=== PATIENT | male | born 1960 | race Caucasian/White ===

== ENCOUNTER 2019-05-03 10:12 | Inpatient (IN) | payer OTHER ==
[~2019-05-03] VITALS: Ht 167.6 cm; Wt 86.0 kg
--- NOTE | 2019-05-03 10:22 | NUR ---
pt to room, changed into gown, upright on gurney awake & comfortable, responds approp to staff, NAD, comfort measures provided, at BS, call light within reach.
[2019-05-03] MEDS ORDERED: ASPI-496 PO (10:29)
[2019-05-03] MEDS ORDERED: HYDR25TA6 PO (10:29)
[2019-05-03] MEDS ORDERED: AMLO10TA8 PO (10:29)
[2019-05-03] MEDS ORDERED: LISI5TAB7 PO (10:29)
[2019-05-03] MEDS ORDERED: hydrALAzine 20 MG/ML, 1ML ONE (10:42)
--- NOTE | 2019-05-03 10:56 | NUR ---
pt remains upright on gurney awake & comfortable, responds approp to staff, NAD, comfort measures provided, at BS, call light within reach.
[2019-05-03] MEDS ORDERED: hydrALAzine 20 MG/ML, 1ML IV ONE (11:00)
[2019-05-03 11:13] LABS: BASOPHILS # (AUTO) 0.04 x10^3/uL (0-0.1); BASOPHILS % (AUTO) 1 % (0-1); EOSINOPHILS # (AUTO) 0.35 x10^3/uL (0-0.4); EOSINOPHILS % (AUTO) 4 % (1-7); LYMPHOCYTES # (AUTO) 2.36 x10^3/uL (1-3.4); LYMPHOCYTES % (AUTO) 28 % (22-44); MD NO; MEAN CORPUSCULAR HEMOGLOBIN 29.3 pg (27.5-34.5); MEAN CORPUSCULAR HGB CONC 33.8 g/dL (33.2-36.2); MEAN CORPUSCULAR VOLUME 86.8 fL (81-97); MEAN PLATELET VOLUME 8.1 fL (7.4-10.4); MONOCYTES # (AUTO) 0.59 x10^3/uL (0.2-0.8); MONOCYTES % (AUTO) 7 % (2-9); NEUTROPHILS # (AUTO) 5.14 x10^3/uL (1.8-6.8); NEUTROPHILS % (AUTO) 61 % (42-75); PLATELET COUNT 249 x10^3/uL (130-400); RED BLOOD COUNT 5.72 x10^6/uL (4.38-5.82); RED CELL DISTRIBUTION WIDTH 13.8 % (9.4-14.8)
[2019-05-03 11:24] LABS: ALBUMIN 4.1 g/dL (3.4-5.0)
[2019-05-03 11:31] LABS: ALANINE AMINOTRANSFERASE 41 U/L (12-78); ALKALINE PHOSPHATASE 106 U/L (45-117); BILIRUBIN,TOTAL 0.7 mg/dL (0.2-1.0); CREATININE 1.29 mg/dL (0.7-1.3); TOTAL PROTEIN 7.5 g/dL (6.4-8.2); TROPONIN I < 0.015 ng/mL (0.000-0.045)
[2019-05-03 11:40] LABS: ANION GAP 8 mmol/L (5-15); CHLORIDE 106 mmol/L (98-107)
--- NOTE | 2019-05-03 11:46 | NUR ---
pt upright on gurney awake & comfortable, responds approp to staff, NAD, comfort measures provided, at BS, call light within reach.
[2019-05-03] MEDS ORDERED: POTASSIUM CHLORIDE 20 MEQ TAB.ER.PRT PO ONE (12:00)
[2019-05-03] MEDS ORDERED: POTASSIUM CHLORIDE 20 MEQ TAB.ER.PRT ONE (12:10)
--- NOTE | 2019-05-03 12:47 | NUR ---
Pt to be admitted to [facility], room 516. Report called to Norman.
[2019-05-03] MEDS ORDERED: LABETALOL 5MG/ML, 20ML IVPush PRN (13:00)
[2019-05-03] MEDS ORDERED: morphine SULFATE 10 MG/ML, 1ML IVPush PRN (13:00)
[2019-05-03] MEDS ORDERED: ONDANSETRON ODT 4 MG PO PRN (13:00)
[2019-05-03] MEDS ORDERED: ONDANSETRON 2MG/ML, 2ML IVPush PRN (13:00)
[2019-05-03 13:16] VITALS: BP 196/93
[2019-05-03 13:47] VITALS: BP 206/112
[2019-05-03 13:47] LABS: FREE T4 (FREE THYROXINE) 1.05 ng/dL (0.76-1.46)
[2019-05-03] MEDS ORDERED: LABETALOL 5 MG/ML SYRINGE IVPush PRN (14:00)
[2019-05-03 14:45] VITALS: BP 193/90
[2019-05-03] MEDS: CHLORTHALIDONE 25 MG TABLET PO SCH (14:58)
[2019-05-03] MEDS ORDERED: hydrALAzine 20 MG/ML, 1ML IV PRN (15:00)
[2019-05-03] MEDS ORDERED: SPIRONOLACTONE 25 MG TABLET PO ONE (15:30)
[2019-05-03 16:04] VITALS: BP 150/76
[2019-05-03 16:34] LABS: TROPONIN I < 0.015 ng/mL (0.000-0.045)
[2019-05-03 18:22] VITALS: BP 155/81
[2019-05-04 00:58] VITALS: BP 167/95
[2019-05-04 04:33] LABS: BASOPHILS # (AUTO) 0.12 x10^3/uL (0-0.1); BASOPHILS % (AUTO) 1 % (0-1); EOSINOPHILS # (AUTO) 0.28 x10^3/uL (0-0.4); EOSINOPHILS % (AUTO) 3 % (1-7); LYMPHOCYTES # (AUTO) 2.47 x10^3/uL (1-3.4); LYMPHOCYTES % (AUTO) 24 % (22-44); MD NO; MEAN CORPUSCULAR HEMOGLOBIN 28.8 pg (27.5-34.5); MEAN CORPUSCULAR HGB CONC 33.3 g/dL (33.2-36.2); MEAN CORPUSCULAR VOLUME 86.6 fL (81-97); MEAN PLATELET VOLUME 7.8 fL (7.4-10.4); MONOCYTES % (AUTO) 8 % (2-9); NEUTROPHILS # (AUTO) 6.59 x10^3/uL (1.8-6.8); NEUTROPHILS % (AUTO) 64 % (42-75); PLATELET COUNT 242 x10^3/uL (130-400); RED BLOOD COUNT 6.05 x10^6/uL (4.38-5.82); RED CELL DISTRIBUTION WIDTH 13.7 % (9.4-14.8)
[2019-05-04 04:44] LABS: ALANINE AMINOTRANSFERASE 37 U/L (12-78); ANION GAP 9 mmol/L (5-15); CALCIUM 8.9 mg/dL (8.5-10.1); CHLORIDE 105 mmol/L (98-107)
[2019-05-04 04:56] LABS: ALKALINE PHOSPHATASE 103 U/L (45-117); BILIRUBIN,TOTAL 1.1 mg/dL (0.2-1.0); CREATININE 1.47 mg/dL (0.7-1.3); TOTAL PROTEIN 7.4 g/dL (6.4-8.2)
[2019-05-04 08:50] VITALS: BP 152/81
[2019-05-04] MEDS ORDERED: LISINOPRIL 5 MG TABLET PO SCH (09:00)
[2019-05-04] MEDS ORDERED: SODIUM CHLORIDE 0.9% 1,000 ML IV SCH (09:30)
[2019-05-04 09:45] LABS: TROPONIN I < 0.015 ng/mL (0.000-0.045)
[2019-05-04] MEDS: LISINOPRIL 40 MG TABLET PO SCH (10:11)
[2019-05-04] MEDS: CHLORTHALIDONE 25 MG TABLET PO SCH (10:11)
[2019-05-04] MEDS: PANTOPRAZOLE 40 MG IV IVPush SCH (10:11)
[2019-05-04] MEDS: ASPIRIN 81 MG TABLET EC PO SCH (10:11)
[2019-05-04] MEDS: AMLODIPINE 10 MG TAB PO SCH (10:12)
[2019-05-04 12:26] VITALS: BP 133/75
[2019-05-04] MEDS ORDERED: ACETAMINOPHEN 325 MG TABLET PO PRN (17:30)
[2019-05-04 19:52] VITALS: BP 136/81
[2019-05-05 01:06] VITALS: BP 121/77
[2019-05-05] MEDS ORDERED: CHLO25TA PO (07:35)
[2019-05-05 07:40] VITALS: BP 142/83
[2019-05-05] MEDS: PANTOPRAZOLE 40 MG IV IVPush SCH (07:53)
[2019-05-05] MEDS: ASPIRIN 81 MG TABLET EC PO SCH (07:54)
[2019-05-05] MEDS: AMLODIPINE 10 MG TAB PO SCH (07:54)
[2019-05-05] MEDS: CHLORTHALIDONE 25 MG TABLET PO SCH (07:54)
[2019-05-05] MEDS: LISINOPRIL 40 MG TABLET PO SCH (07:54)
[2019-05-05 08:07] LABS: ANION GAP 6 mmol/L (5-15); CALCIUM 9.3 mg/dL (8.5-10.1); CHLORIDE 105 mmol/L (98-107); CREATININE 1.72 mg/dL (0.7-1.3)
== END 2019-05-05 09:10 | disposition home or self-care (01) | DRG 305 ==
LOC: ED 11:10 → EDIP 11:59 → 5SO 13:14 → DCLOUNGE 05-05 09:06
PROVIDERS: ADMIT Internal Medicine; ATTEND Internal Medicine
DX: I16.0 Hypertensive urgency (principal); I10 Essential (primary) hypertension; J45.909 Unspecified asthma, uncomplicated; K21.9 Gastro-esophageal reflux disease without esophagitis; F41.9 Anxiety disorder, unspecified; R07.9 Chest pain, unspecified; Z80.3 Family history of malignant neoplasm of breast; Z82.49 Family history of ischemic heart disease and other diseases of the circulatory system
CPT/HCPCS: 36415; 71045; 80048; 80053; 82570; 83735; 84100; 84156; 84439; 84443; 84484; 85025; 93005; 93017; 93975; 99285; G0378; C9113; J0360; J7030